=== PATIENT | female | born 1980 | race Caucasian/White ===

== ENCOUNTER 2017-05-05 02:18 | Emergency (ER) | payer BC, OTHER ==
[~2017-05-05] VITALS: Ht 162.6 cm; Wt 81.7 kg
[~2017-05-05 02:18] MED LIST: ZOFRAN ODT4 MG PO
[2017-05-05] MEDS ORDERED: NOHOMEMEDICATIONS (02:43)
[2017-05-05 02:46] LABS: HEMATOCRIT 34.7 % (37.0-47.0); HEMOGLOBIN 11.5 gm/dL (12.0-15.0); MCH 29.4 pg (26.0-34.0); MCHC 33.1 g/dL (28.0-37.0); MCV 88.8 fL (80.0-100.0); RBC 3.91 mil/uL (4.20-5.00); RDW 15.7 % (10.5-14.5); WBC 8.9 thou/uL (4.0-11.0)
[2017-05-05 02:49] LABS: CALCIUM 8.5 mg/dL (8.5-10.1); CREATININE 0.6 mg/dL (0.6-1.0); POTASSIUM 4.2 mmol/L (3.5-5.1)
[2017-05-05] MEDS ORDERED: BUTALB-APAP-CA1 EACH PO (05:22)
== END 2017-05-05 05:34 | disposition home or self-care (01) ==
LOC: ER 02:18
PROVIDERS: Emergency Medicine
DX: R51 Headache (principal)